=== PATIENT | female | born 1965 | race Two or more races ===

== ENCOUNTER → 2024-05-21 | Outpatient (CLI) | payer BC, SELFPAY ==
--- NOTE | 2024-05-21 16:30 | XR_ITS ---
Examination: Knee bilateral, 6 views Technique: Knee AP, lateral, oblique each knee total 6 views Date and time of exam: May 13, 2024 1435 hrs. Indications: Bilateral knee pain several years Findings: Moderate osteopenia Moderate narrowing medial joint space right knee Moderate osteoarthritis right patellofemoral joint no fracture Advanced narrowing medial joint space left knee Moderate osteoarthritis patellofemoral joint No fracture Impression: Moderate narrowing medial joint space right knee, moderate osteoarthritis right patellofemoral joint Advanced narrowing medial joint space left knee, moderate osteoarthritis patellofemoral joint
--- NOTE | 2024-05-21 16:30 | XR_ITS ---
Examination: PA lateral chest 2 views Technique: Upright PA lateral chest 2 views Exam date and time: May 13, 2024 1641 hrs. Comparison 12/16/2023 Indications: Coughing beginning 3 weeks ago Findings: Normal heart size Lungs are clear. Osseous structures intact Impression: No active disease
[2024-05-21 17:33] LABS: Basophils % (Auto) 1 % (0-2.5); Eosinophils # (Auto) 0.6 Thou/mm3 (0.0-0.5); Eosinophils % (Auto) 8 % (0-10); Hemoglobin 13.6 g/dL (12.0-16.0); Immature Granulocytes % (Auto) 1 % (0-0); Immature Granulocytes Auto 0.06 Thou/mm3 (0.00-0.00); Lymphocytes # (Auto) 2.7 Thou/mm3 (1.0-4.8); Lymphocytes % (Auto) 35 % (10-50); Mean Corpuscular Hemoglobin 29.8 pg (25.0-35.0); Mean Corpuscular Volume 88 fL (80-100); Monocytes # (Auto) 0.5 Thou/mm3 (0.0-0.8); Monocytes % (Auto) 6 % (0-12); Neutrophils # (Auto) 3.9 Thou/mm3 (1.8-7.7); Neutrophils % (Auto) 50 % (37-80); Nucleated Red Blood Cell % 0 /100 WBC (0); Platelet Count 282 Thou/mm3 (140-440); RDW Standard Deviation 43.5 fL (36.4-46.3); Red Blood Count 4.56 Miln/mm3 (4.00-5.20); White Blood Count 7.7 Thou/mm3 (3.6-11.0)
[2024-05-22 15:06] LABS: Cocci Serology, IgM Negative (Negative)
[2024-05-27 13:08] LABS: Cocci Serology, IgG Negative (Negative)
== END | disposition home or self-care (01) ==
LOC: CDIM 16:24 → COPL 16:55
PROVIDERS: Referring Provider Registered Nurse; Visit Provider Registered Nurse
DX: M17.0 Bilateral primary osteoarthritis of knee (principal); R05.2 Subacute cough; R50.9 Fever, unspecified
CPT/HCPCS: 36415; 71046; 73562; 85025; 86331; 86635

== ENCOUNTER → 2024-06-29 | Outpatient (CLI) | payer BC, SELFPAY ==
--- NOTE | 2024-06-29 16:41 | XR_ITS ---
Examination: Bilateral knees 2 views Right lateral knee left lateral knee 2 views Technique: Bilateral AP knees standing single view, bilateral PA knees standing single view flexion Standing right lateral knee left lateral knee 2 views Exam date and time: June 29, 2024 1658 hrs. Indications: Bilateral knee pain beginning 2016. Findings: Moderate osteopenia Bilateral advanced medial joint spaces Bilateral moderate to advanced osteoarthritis patellofemoral joints No fractures Impression: Bilateral advanced narrowing medial joint spaces Bilateral moderate to advanced osteoarthritis patellofemoral joints
--- NOTE | 2024-06-29 16:41 | XR_ITS ---
Examination: Foot bilateral, 6 views Technique: AP, oblique, lateral views each foot total 6 views Date and time of exam: June 29, 2024 1658 hrs. Indications: Bilateral foot pain beginning 6 months ago. Findings: Old fracture deformity right fifth metacarpal 3 mm right plantar bony calcaneal spur Mild bilateral narrowing first metatarsophalangeal joints Mild bilateral narrowing first tarsometatarsal joints Mild left bunion deformity No fracture involving either foot Impression: Bilateral osteoarthritis as above
== END | disposition home or self-care (01) ==
PROVIDERS: PCP Registered Nurse; Referring Provider Registered Nurse; Visit Provider Registered Nurse
DX: M19.072 Primary osteoarthritis, left ankle and foot (principal); M19.071 Primary osteoarthritis, right ankle and foot; M17.0 Bilateral primary osteoarthritis of knee; M25.862 Other specified joint disorders, left knee; M25.861 Other specified joint disorders, right knee
CPT/HCPCS: 73562; 73630

== ENCOUNTER 2024-08-05 14:40 | Outpatient (AMB) | payer BC, SELFPAY ==
[2024-08-05 15:07] VITALS: BP 120/70; PULSE 92; RESP 17; TEMP 36.8; O2SAT 96; BMI 52.7
--- NOTE | 2024-08-05 15:07 | PD.ORTHCLVIS ---
Vital signs 08/05/24 15:07 Height 1.57 m Height Method Stated Weight 130.89 kg Weight Measurement Method Standing Scale BMI 52.7 BP 120/70 Blood Pressure Source Automatic Cuff Blood Pressure Location Right Upper Arm Position Sitting Respiration 17 Pulse 92 Pulse Source Monitor Temp 98.3 F Temp Source Temporal Artery Scan Pulse Oximetry (%) 96 Med/Allergies Allergies & Medications Allergies codeine Allergy (Unknown, Verified 08/05/24 15:11) HIVES acetaminophen (From [place]) Allergy (Verified 08/05/24 15:11) POSSIBLE WELT hydrocodone (From [place]) Allergy (Verified 08/05/24 15:11) POSSIBLE WELT topiramate (From Topamax) Allergy (Verified 08/05/24 15:11) HAIR LOSS Pistachio Allergy (Mild, Uncoded 08/05/24 15:11) THROAT CLOSES Medication Reconciliation duloxetine 60 mg capsule,delayed release (Cymbalta) 60 mg PO QDAY 08/05/24 [History Confirmed 08/05/24] esomeprazole magnesium 40 mg capsule,delayed release (Nexium) 40 mg PO QDAY 08/05/24 [History Confirmed 08/05/24] lisdexamfetamine 40 mg capsule (Vyvanse) 40 mg PO QDAY 08/05/24 [History Confirmed 08/05/24] lorazepam 1 mg tablet (Ativan) 1 mg PO QDAY PRN 08/05/24 [History Confirmed 08/05/24] Exam Exam Patient is in no acute distress and is cooperative with the examination today. Breathing is nonlabored. In no respiratory distress. Bilateral extremities were evaluated and demonstrates sensation intact to light touch. Palpable pedal pulses are present. No significant edema is present. Bilateral hips were examined. The patient has no pain with log roll of the hips. Internal rotation to 30 degrees and external rotation to 30 degrees is painless. Negative FADIR. The left knee was examined. The left knee is in varus alignment. Range of motion from 0-115 degrees. Knee is stable to varus and valgus as well as AP translation with <5mm. Patient has a negative Mc[place]rays. There is no pain with patellofemoral compression and no crepitus noted. The knee is tender to palpation medially. The right knee was also examined. The right knee is in varus alignment. Range of motion from 0-120 degrees. Knee is stable to varus and valgus as well as AP translation with <5mm. Patient has a negative Mc[place]rays. There is no pain with patellofemoral compression and no crepitus noted. The knee is tender to palpation medially. X-rays demonstrate left greater than right knee arthritis. This has been ongoing for a while Assessment and Plan Problem List (1) Degenerative arthritis of knee, bilateral: Status: Acute Plan: Patient is a pleasant 58-year-old female who is morbidly obese with Left greater than right knee arthritis. We discussed different treatment options. We discussed anti-inflammatories and injections. She has not had any injections. We discussed that she would need to lose weight in order to get surgery as she would be at high risk for complications right now. Her goal weight is 220 given her height Recommend knee cortisone injections as patient would like to proceed with conservative treatment at this time. The risks and benefits of the procedure were reviewed with the patient and patient gave verbal consent to continue with the procedure. Procedure: performed by Dr. Mayorga Using sterile technique the Bilateral knees were thoroughly prepped with alcohol, and approximately 1 cc of Kenalog 40 mg/mL and 4 cc of 1% lidocaine was injected into each knee without resistance into the medial tibial femoral joint space. The patient tolerated the procedure. 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 Sales Specialist 40 mL Infiltration 40 mL [id number] 11/21/27 49809-379-67 [employer] triamcinolone acetonide 40 mg/mL suspension for injection Performing Provider: Lobito Mayorga MD Performing Location: [facility] Administered by: Lobito Mayorga MD on 08/05/24 15:32 Dose Route Admin Location Dispensed Lot Number Expiration Date [facility] Sales Specialist 80 mg intra-articular 2 mL [id number] 03/22/26 1975-6352-56 TEVA PARENTERAL MA Intake Visit Data Collection New Patient or Established: Established Patient (seen at [facility] within 3 years) Reason for Visit:: BILAT KNEE PAIN Seen by Clinical Staff ONLY (RN/MA): No Civil Engineering Specialist Required: No PCP or OBGYN visit in last 3 months: Yes Hx Now: No Do You Feel Safe at Home: Yes Authorities Contacted: N/A Questionairres Past Medical History Past Medical History Have you ever been diagnosed with any of the following: Respiratory Problems Smoking: No Smoking Cessation Counseling: No Smoking Exposure: No Tobacco Use: No Subjective Visit Visit for: new patient and knee (BILAT KNEE ) Immunization / Flu Flu Vaccine in the Last 12 Months: No Flu Vaccine Exclusion Criteria: Refused by Patient History of Present Illness Chief complaint: bl knee pain Ros is a pleasant 58-year-old female with a left greater than right knee pain. This been ongoing for a while. She had a prior arthroscopic surgery on the left knee. She has tried anti-inflammatories but has not had any injections. She has been trying to lose weight. She was previously on Ozempic but had side effects and was allergic to it Personal History Red flag PMH: none Pain Pain level (0-10): 10 Pain duration: 2 YEARS Pain location: anterior Pain quality: sharp and burning Pain timing: night Associated signs & symptoms: numbness Ambulatory data Ambulatory device: none Walking distance (minutes): 1 Treatments Number of previous injections: 0 Number of Physical Therapy sessions: 4 Improvement with PT: No Improvement with NSAIDS: n/a Review of Systems Review of Systems: All systems negative unless otherwise noted in HPI.
== END 2024-08-05 15:28 | disposition home or self-care (01) ==
LOC: HODSRG 14:40
PROVIDERS: PCP Registered Nurse; Referring Provider Registered Nurse; Supervising Provider Orthopaedic Surgery Adult Reconstructive Orthopaedic Surgery; Visit Provider Orthopaedic Surgery Adult Reconstructive Orthopaedic Surgery
DX: M17.0 Bilateral primary osteoarthritis of knee (principal); E66.01 Morbid (severe) obesity due to excess calories; Z68.43 Body mass index [BMI] 50.0-59.9, adult
CPT/HCPCS: 20610; 99203; J3301; J3490; G0463

== ENCOUNTER 2024-08-19 16:10 | Emergency (ER) | payer BC, SELFPAY ==
[2024-08-19 16:11] VITALS: BMI 53.0
[2024-08-19 16:30] VITALS: BP 155/100; PULSE 89; RESP 20; TEMP 36.7; O2SAT 95
--- NOTE | 2024-08-19 16:38 | XR_ITS ---
Examination: Pelvic ultrasound, transabdominal, complete Technique: Transabdominal ultrasound of the pelvis performed using grayscale imaging Date and time of exam: August 19, 2024, 1801 hours INDICATIONS: Right-sided pelvic pain onset today FINDINGS: Uterus 9.2 cm endometrial stripe 1.0 cm No urinary mass Ovary is obscured by incomplete bladder distention IMPRESSION: Limited study No uterine mass
--- NOTE | 2024-08-19 16:38 | XR_ITS ---
Examination: CT abdomen and pelvis without contrast. Coronal 3-D reconstructions. Sagittal 2-D reconstructions. Date and time of exam:August 19, 2024 1713 hours Comparison January 06, 2012 INDICATIONS: Abdominal pain beginning 2 days ago CTDI: vol (mGy): 20.5 DLP: (mGycm): 1221 Technique: Axial images of the abdomen have been obtained, 3 mm slice thickness Intravenous contrast material has not been administered. Low dose protocols were performed. One or more of the following dose reduction techniques were used; automated exposure control, adjustment of the mA and/or KV according to patient size, use of iterative reconstruction technique. Findings: 2 mm pulmonary nodule right middle lobe Diffuse fatty infiltration throughout the liver, liver mildly irregular in contour. Contracted gallbladder Spleen not enlarged No pancreatic mass or peripancreatic edema No renal or ureteral calculi Mild bilateral renal parenchymal scar formation Aorta normal size 10 mm fat-containing umbilical hernia Normal appendix No bowel obstruction Colonic diverticulosis, no diverticulitis Atrophic uterus with endometrial stripe thickened in this postmenopausal female, at least 12 mm Contracted urinary bladder Advanced degenerative disc disease L5-S1 IMPRESSION: 2 mm pulmonary nodule right middle lobe, recommend PA lateral chest follow-up No renal or ureteral calculi Normal appendix Abnormally thickened endometrial stripe, recommend transvaginal pelvic sonography follow-up to confirm thickened endometrial stripe, which can be seen with endometrial hyperplasia, early malignant neoplasm of the endometrium
--- NOTE | 2024-08-19 16:39 | EDRME_ITS ---
Rapid Medical Screening Exam RME Arrival date/time: 08/19/24 16:10 58-year-old female with no known medical history presents to the emergency room with a chief complaint of right sided lower abdominal pain, vaginal bleeding x 2 days I have greeted and performed a focused initial assessment of this patient. A com prehensive ED assessment and evaluation of the patient, analysis of all test results, and completion of the medical decision making process will be conducted by additional ED providers. Chief Complaint: Abdominal Pain Vital signs: Vital Signs Temperature 98.0 F 08/19/24 16:30 Pulse Rate 89 08/19/24 16:30 Respiratory Rate 20 08/19/24 16:30 Blood Pressure 155/100 H 08/19/24 16:30 Pulse Oximetry (%) 95 08/19/24 16:30 Oxygen Delivery Method Room Air 08/19/24 16:30 Vital signs reviewed by provider: Yes
[2024-08-19 17:41] LABS: Basophils % (Auto) 0 % (0-2.5); Eosinophils # (Auto) 0.1 Thou/mm3 (0.0-0.5); Eosinophils % (Auto) 2 % (0-10); Hematocrit 41.9 % (36.0-46.0); Hemoglobin 14.2 g/dL (12.0-16.0); Immature Granulocytes % (Auto) 0 % (0-0); Immature Granulocytes Auto 0.03 Thou/mm3 (0.00-0.00); Lymphocytes # (Auto) 2.2 Thou/mm3 (1.0-4.8); Lymphocytes % (Auto) 27 % (10-50); Mean Corpuscular HGB Conc 33.9 g/dl (31.0-37.0); Mean Corpuscular Hemoglobin 30.5 pg (25.0-35.0); Mean Corpuscular Volume 90 fL (80-100); Monocytes # (Auto) 0.6 Thou/mm3 (0.0-0.8); Monocytes % (Auto) 7 % (0-12); Neutrophils % (Auto) 63 % (37-80); Nucleated Red Blood Cell % 0 /100 WBC (0); Platelet Count 289 Thou/mm3 (140-440); RDW Standard Deviation 43.3 fL (36.4-46.3); Red Blood Count 4.66 Miln/mm3 (4.00-5.20)
[2024-08-19 18:01] LABS: Alanine Aminotransferase 26 U/L (10-49); Albumin, Serum 4.3 gm/dL (3.5-5.0); Albumin/Globulin Ratio 1.7 (1.2-2.2); Alkaline Phosphatase 94 U/L (46-116); Anion Gap 10 (7-16); Aspartate Amino Transferase 20 U/L (0-34); BUN/Creatinine Ratio 18 Ratio (12-20); Bilirubin,Total 0.4 mg/dL (0.3-1.2); Blood Urea Nitrogen 14 mg/dL (9-23); Calcium 9.3 mg/dL (8.3-10.6); Calcium (Corrected) 9.3 mg/dL (8.5-10.1); Carbon Dioxide 23.9 mMol/L (20.0-31.0); Chloride 106 mMol/L (98-107); Creatinine (Component) 0.8 mg/dL (0.6-1.3); Estimated Creatinine Clearance 101.3 mL/min (>60); Globulin 2.5 gm/dL (2.3-3.5); Glucose 108 mg/dL (74-106); Lipase 27 U/L (12-53); Osmolality,Calculated 280 (275-295); Potassium 3.9 mMol/L (3.4-5.1); Sodium 140 mMol/L (136-145); Total Protein 6.8 gm/dL (5.7-8.2); eGFR > 60 See Note
[2024-08-19 18:36] LABS: Bilirubin,Urine Negative (Negative); Blood,Urine 3+ (Negative); Clarity,Urine Turbid (Clear/Hazy); Collection Type, Urine Clean Catch; Color,Urine Yellow (Lt Yel-Yel); Glucose, Urine Negative (Negative); Hyaline Casts,Urine < 1 /hpf (0-1); Ketones,Urine Negative (Negative); Leukocyte Esterase,Urine Negative (Negative); Nitrite,Urine Negative (Negative); PH,Urine 5.5 (5.0-7.0); Protein,Urine 1+ (Neg - Trace); RBC,Urine 1242 /hpf (0-3); Specific Gravity,Urine 1.026 (1.001-1.035); Squamous Epithelial Cell,Urine 7 /hpf (0-5); Urobilinogen,Urine Negative mg/dL (0.0-1.0); WBC,Urine 11 /hpf (0-5)
--- NOTE | 2024-08-19 20:21 | PD.EDABDPN ---
ED Abdominal Pain RME/HPI General Chief Complaint: Abdominal Pain Stated complaint: RIGHT FLANK PAIN SINCE YESTERDAY Time seen by provider: 08/19/24 18:19 Arrival date/time: 08/19/24 16:10 RME / HPI RME / HPI narrative: 58-year-old female with no known medical history presents to the emergency room with a chief complaint of right sided lower abdominal pain, flank pain, since yesterday, vaginal bleeding x since this morning. Severity of symptoms mild. Patient denies any fever denies any vomiting denies any other complaints no medications taken prior to arrival. Currently patient is not having any flank pain only complaint of pelvic discomfort. Related Data Home Medications ?Medication ?Instructions ?Recorded ?Confirmed duloxetine 60 mg capsule,delayed 60 mg PO QDAY 08/05/24 08/05/24 release (Cymbalta) esomeprazole magnesium 40 mg 40 mg PO QDAY 08/05/24 08/05/24 capsule,delayed release (Nexium) lisdexamfetamine 40 mg capsule 40 mg PO QDAY 08/05/24 08/05/24 (Vyvanse) lorazepam 1 mg tablet (Ativan) 1 mg PO QDAY PRN 08/05/24 08/05/24 Previous Rx's ?Medication ?Instructions ?Recorded ibuprofen 800 mg tablet 800 mg PO Q8H PRN pain #30 tabs 08/19/24 Allergies Allergy/AdvReac Type Severity Reaction Status Date / Time codeine Allergy Severe HIVES Verified 08/19/24 16:14 pistachio nut Allergy Severe Swelling Verified 08/19/24 16:14 of Lip/Tongue/Throat topiramate (From Topamax) Allergy Severe HAIR LOSS Verified 08/19/24 16:14 Review of Systems Review of Systems Narrative Review of Systems: Review of system reviewed and within normal limits except mentioned in HPI ED Exam Narrative Physical exam: VITAL SIGNS: Reviewed. GENERAL APPEARANCE: Alert and interactive, follows commands, no acute distress, HEAD AND FACE: Non-traumatic. ENT: PERRL, pink conjunctivitis, eyelid no trauma, Mucous membrane moist. NECK: Supple, nontender, no nuchal rigidity. CHEST: No tenderness, no crepitus, no paradoxical movement, no retractions. LUNGS: Clear, well ventilated, symmetric, no rales, no wheezing, no ronchi, no stridor, good breath sounds bilaterally. HEART: Regular rate, regular rhythm, no murmur, no gallops. ABDOMEN: Soft, positive bowel sounds, nondistended, no guarding, pelvic tenderness , no rebound, no masses, RECTAL: Deferred. GENITAL: Deferred. NEUROLOGICAL: Gross motor function intact sensory function intact, Appropriate for age. MUSCULOSKELETAL: low back nontender, full range of motion. EXTREMITIES: Nontender, full range of motion. SKIN: Color pink, dry, no rash, no lacerations, no abrasions, no contusions. LYMPHATICS: Deferred. Course Quality Measures none Orders Category Date Time Status CT abdomen pelvis wo con Stat Exams 08/19/24 16:38 Completed US pelvic complete Stat Exams 08/19/24 16:38 Completed CBC Stat Lab 08/19/24 17:20 Completed CMP [Comprehensive Metabolic Panel] Stat Lab 08/19/24 17:20 Completed Lipase Stat Lab 08/19/24 17:20 Completed UA [Urinalysis] Stat Lab 08/19/24 16:38 Completed Urine Culture Stat Lab 08/19/24 18:15 Received HYDROcodone*/APAP 5/325 [[place] 5/325] Med 08/19/24 20:20 Once 1 tab PO X1 ONE Vital Signs Vital signs: Vital Signs Temperature 98.0 F 08/19/24 16:30 Pulse Rate 89 08/19/24 16:30 Respiratory Rate 20 08/19/24 16:30 Blood Pressure 155/100 H 08/19/24 16:30 Pulse Oximetry (%) 95 08/19/24 16:30 Oxygen Delivery Method Room Air 08/19/24 16:30 Abdominal Pain MDM MDM Narrative MDM Narrative:: 58-year-old female with no known medical history presents to the emergency room with a chief complaint of right sided lower abdominal pain, flank pain, since yesterday, vaginal bleeding x since this morning. Severity of symptoms mild. Patient denies any fever denies any vomiting denies any other complaints no medications taken prior to arrival. Currently patient is not having any flank pain only complaint of pelvic discomfort. Patient's workup today significant for hematuria otherwise unremarkable no UTI. Ultrasound of the pelvis came back with no uterine mass. CT scan of the abdomen and pelvis showed 2 mm pulmonary nodule right middle lobe, recommend PA lateral chest follow-up No renal or ureteral calculi Normal appendix Abnormally thickened endometrial stripe, recommend transvaginal pelvic sonography follow-up to confirm thickened endometrial stripe, which can be seen with endometrial hyperplasia, early malignant neoplasm of the endometrium Patient was advised to follow-up with [facility] to rule out the cause of the vaginal bleeding. Patient agrees with the plan. Patient was also advised to closely follow-up with PCP regarding incidental finding of pulmonary nodule. Patient data External records reviewed:: None Clinical information provided by:: patient Social determinants that could affect healthcare access:: none Patient has the following chronic illnesses:: None How is presenting disease/condition affected by chronic disease/condition?: no chronic disease Evaluation data The following diagnostics were reviewed and interpreted by me:: lab results and radiology exam(s) Lab and/or radiology exams considered but not ordered:: None Interpretation Summary: See results MDM Medications / Prescriptions Medications or Prescriptions considered but not ordered:: none Medication administrations:: none Consultations Consultation(s) initiated? (list below): No Diagnosis Differential diagnosis abdominal pain: abdominal pain and other (Vaginal bleeding,) Most likely diagnosis given after review of the tests above:: Vaginal bleeding, pelvic pain Admission Indicated Admission indicated?: not indicated Admission Request Was there a request for admission?: No Disposition Plan Disposition Plan: Discharge Discharge Attestation Discharge Attestation: The patient and all family members were given an opportunity to ask questions and understood the discharge instructions. Discharge instructions specifically effects, indications for sooner follow up or return to the emergency department, and the expected course of current diagnosis. Patient condition: Stable Discharge Plan Plan Patient Disposition: HOME (Self Care) Prescriptions/Referrals Prescriptions/Med Rec: New ibuprofen 800 mg tablet 800 mg PO Q8H PRN (Reason: pain) Qty: 30 0RF No Action duloxetine [Cymbalta] 60 mg capsule,delayed release(DR/EC) 60 mg PO QDAY lisdexamfetamine [Vyvanse] 40 mg capsule 40 mg PO QDAY lorazepam [Ativan] 1 mg tablet 1 mg PO QDAY PRN esomeprazole magnesium [Nexium] 40 mg capsule,delayed release(DR/EC) 40 mg PO QDAY Referrals: Nikia Ornelas MD [Primary Care Provider] - In 1 week Problem List Clinical Impression: Pelvic pain, Postmenopausal vaginal bleeding Patient/Caregiver Discharge Instructions Discharge Activity: activity as tolerated Education Materials: ED Pelvic Pain, Unknown Cause Additional Instructions: Thank you for the opportunity for serving you today. You are stable for discharged . You are advised to: Follow-up with your PCP in 1 to 2 days Return to ED for worsening of symptoms Increase oral fluids Take medication as prescribed As your PCP to refer to [facility] for further evaluation regarding your postmenopausal vaginal bleeding Print Language: Malay Stand Alone Forms: Callie Award Info., Patient Portal Info Letter PA/PAOLA Supervising Physician PA/PAOLA Supervising Physician: MD Tatianna
[2024-08-19] MEDS: HYDROcodone/APAP 5/325 TABLET 1 TAB PO (20:30)
[2024-08-19 20:42] VITALS: BP 145/87; PULSE 86; RESP 18; TEMP 36.8; O2SAT 99
[2024-08-19 20:45] VITALS: RESP 16
== END 2024-08-19 20:47 | disposition home or self-care (01) ==
PROVIDERS: Nurse Practitioner Family; Emergency Provider Emergency Medicine; PCP Internal Medicine
DX: R10.2 Pelvic and perineal pain (principal); N95.0 Postmenopausal bleeding
CPT/HCPCS: 36415; 74176; 76856; 80053; 81001; 83690; 85025; 87086; 99284; A9270

== ENCOUNTER 2024-11-09 14:13 | Outpatient (AMB) | payer BC, SELFPAY ==
--- NOTE | 2024-11-09 14:40 | ORTHONT_ITS ---
Vital signs 11/09/24 14:48 Height 1.57 m Height Method Measured Weight 128.622 kg Weight Measurement Method Standing Scale BMI 52.2 BP 153/85 H Blood Pressure Source Automatic Cuff Blood Pressure Location Left Upper Arm Position Sitting Respiration 18 Pulse 103 H Pulse Source Monitor Temp 97.4 F Temp Source Temporal Artery Scan Pulse Oximetry (%) 95 Oxygen Delivery Method Room Air Med/Allergies Allergies & Medications Allergies codeine Allergy (Severe, Verified 11/09/24 14:49) HIVES pistachio nut Allergy (Severe, Verified 11/09/24 14:49) Swelling of Lip/Tongue/Throat topiramate (From Topamax) Allergy (Severe, Verified 11/09/24 14:49) HAIR LOSS Medication Reconciliation duloxetine 60 mg capsule,delayed release (Cymbalta) 60 mg PO QDAY 08/05/24 [History Confirmed 11/09/24] esomeprazole magnesium 40 mg capsule,delayed release (Nexium) 40 mg PO QDAY 08/05/24 [History Confirmed 11/09/24] lisdexamfetamine 40 mg capsule (Vyvanse) 40 mg PO QDAY 08/05/24 [History Confirmed 11/09/24] lorazepam 1 mg tablet (Ativan) 1 mg PO QDAY PRN 08/05/24 [History Confirmed 11/09/24] ibuprofen 800 mg tablet 800 mg PO Q8H PRN pain #30 tabs 08/19/24 [Rx Confirmed 11/09/24] Assessment and Plan Problem List (1) Degenerative arthritis of knee, bilateral: Status: Acute Plan: Patient is a pleasant 58-year-old female who is morbidly obese with Left greater than right knee arthritis. We discussed different treatment options. We discussed anti-inflammatories and injections. She has not had any injections. We discussed that she would need to lose weight in order to get surgery as she would be at high risk for complications right now. Her goal weight is 220 given her height Recommend knee cortisone injection as patient would like to proceed with conservative treatment at this time. The risks and benefits of the procedure were reviewed with the patient and patient gave verbal consent to continue with the procedure. Procedure: performed by Dr. Mayorga Using sterile technique the left knee was thoroughly prepped with alcohol, and approximately 1 cc of Depo-Medrol 80mg/mL and 4 cc of 0.2% ropivacaine was injected without resistance into the medial tibial femoral joint space. The patient tolerated the procedure. Recommend knee cortisone injection as patient would like to proceed with conservative treatment at this time. The risks and benefits of the procedure were reviewed with the patient and patient gave verbal consent to continue with the procedure. Procedure: performed by Dr. Mayorga Using sterile technique the Right knee was thoroughly prepped with alcohol, and approximately 1 cc of Depo-Medrol 80mg/mL and 4 cc of 0.2% ropivacaine was injected without resistance into the medial tibial femoral joint space. The patient tolerated the procedure. Office Procedures GNS Level of Care Nursing/Assessment Patient Status: Established Patient Nursing Assessment/Reassesment: Medication Reconciliation, Orthostatic Vitals, Update PMH in EMR and Vital Signs Coordination of Care: Complex Care and Chronic Disease 1-5, Education Complex Pt/Fam, Consent,records obtained, informed consent, Results/Orders obtained and Staff clarify orders Established Patient Charge Established Patient Point Assignment: 105 Established Patient Point Charge: EP Level 3 (80-115) Surgical Proc/IM SQ injection Major Surgical Procedure: Yes (BILATERAL KNEE INJECTION) Medication Given Medication Given Medication Given: Yes Documented Dose Given: 1 Route: Infiitration Medication Given Medication Given Medication Given: Yes Documented Dose Given: 1 Route: Infiitration Medication Given Medication Given Medication Given: Yes Documented Dose Given: 4 Route: Infiitration Medication Given Medication Given Medication Given: Yes Documented Dose Given: 4 Route: Infiitration Office Meds methylprednisolone acetate 80 mg/mL suspension for injection Performing Provider: Lobito Mayorga MD Performing Location: [facility] Administered by: Lobito Mayorga MD on 11/09/24 15:13 Dose Route Admin Location Dispensed Lot Number Expiration Date [facility] Licensed Weigher 80 mg intra-articular 1 mL [id number] 08/20/26 [address]-8 [employer] methylprednisolone acetate 80 mg/mL suspension for injection Performing Provider: Lobito Mayorga MD Performing Location: [facility] Administered by: Lobito Mayorga MD on 11/09/24 15:13 Dose Route Admin Location Dispensed Lot Number Expiration Date [facility] Licensed Weigher 80 mg intra-articular 1 mL [id number] 08/20/26 [address]-1 [employer] ropivacaine (PF) 2 mg/mL (0.2 %) injection solution Performing Provider: Lobito Mayorga MD Performing Location: [facility] Administered by: Lobito Mayorga MD on 11/09/24 15:14 Dose Route Admin Location Dispensed Lot Number Expiration Date [place] Licensed Weigher 20 mL Infiltration 20 mL [id number] 02/20/26 71294-645-78 [employer] [facility] ropivacaine (PF) 2 mg/mL (0.2 %) injection solution Performing Provider: Lobito Mayorga MD Performing Location: [facility] Administered by: Lobito Mayorga MD on 11/09/24 15:14 Dose Route Admin Location Dispensed Lot Number Expiration Date [facility] Licensed Weigher 20 mL Infiltration 20 mL [id number] 02/20/26 93202-963-61 [employer] [facility] Intake Visit Data Collection New Patient or Established: Established Patient (seen at [facility] within 3 years) Reason for Visit:: BILAT KNEE PAIN Seen by Clinical Staff ONLY (RN/MA): No Salesforce Administrator Required: No PCP or OBGYN visit in last 3 months: Yes Hx Now: No Do You Feel Safe at Home: Yes Authorities Contacted: N/A Questionairres Past Medical History Past Medical History Have you ever been diagnosed with any of the following: Respiratory Problems Smoking: No Smoking Cessation Counseling: No Smoking Exposure: No Tobacco Use: No Subjective Visit Visit for: follow up visit and knee Immunization / Flu Flu Vaccine in the Last 12 Months: No Flu Vaccine Exclusion Criteria: Refused by Patient History of Present Illness Chief complaint: bl knee pain Ros is a pleasant 58-year-old female with a left greater than right knee pain. This been ongoing for a while. She had a prior arthroscopic surgery on the left knee. She has tried anti-inflammatories but has not had any injections. She has been trying to lose weight. She was previously on Ozempic but had side effects and was allergic to it Personal History Red flag PMH: none Pain Pain level (0-10): 10 Pain duration: 2 YEARS Pain location: anterior Pain quality: sharp and burning Pain timing: night Associated signs & symptoms: numbness Ambulatory data Ambulatory device: none Walking distance (minutes): 1 Treatments Number of previous injections: 0 Number of Physical Therapy sessions: 4 Improvement with PT: No Improvement with NSAIDS: n/a Review of Systems Review of Systems: All systems negative unless otherwise noted in HPI.
[2024-11-09 14:48] VITALS: BP 153/85; PULSE 103; RESP 18; TEMP 36.3; O2SAT 95; BMI 52.2
== END 2024-11-09 15:12 | disposition home or self-care (01) ==
PROVIDERS: PCP Registered Nurse; Referring Provider Registered Nurse; Supervising Provider Orthopaedic Surgery Adult Reconstructive Orthopaedic Surgery; Visit Provider Orthopaedic Surgery Adult Reconstructive Orthopaedic Surgery
DX: M17.0 Bilateral primary osteoarthritis of knee (principal); M25.562 Pain in left knee; M25.561 Pain in right knee; E66.01 Morbid (severe) obesity due to excess calories; Z68.43 Body mass index [BMI] 50.0-59.9, adult
CPT/HCPCS: 20610; 99213; J1010; J2795; G0463

== ENCOUNTER → 2025-01-26 | Outpatient (CLI) | payer BC, SELFPAY ==
--- NOTE | 2025-01-26 16:59 | XR_ITS ---
Examination: Knee, right, 3 views Technique: Knee AP, lateral, oblique 3 views Date and time of exam: 01/26/2025 at 5:00 p.m. INDICATION: Right knee pain after fall 3 days ago COMPARISON: Bilateral knee radiographs 06/29/2024 FINDINGS: No acute fracture or traumatic subluxation. Redemonstration of osteoarthrosis including high-grade narrowing at the medial femoral tibial compartment and very mild marginal osteophyte formation at the medial compartment and patellofemoral compartment. A small suprapatellar joint effusion is seen. IMPRESSION: No acute fracture or traumatic subluxation. Small knee joint effusion. Osteoarthrosis reidentified.
[2025-01-26 17:38] LABS: Basophils # (Auto) 0.0 Thou/mm3 (0.0-0.2); Basophils % (Auto) 1 % (0-2.5); Eosinophils # (Auto) 0.1 Thou/mm3 (0.0-0.5); Eosinophils % (Auto) 1 % (0-10); Hematocrit 41.1 % (36.0-46.0); Hemoglobin 13.8 g/dL (12.0-16.0); Immature Granulocytes Auto 0.05 Thou/mm3 (0.00-0.00); Lymphocytes # (Auto) 1.6 Thou/mm3 (1.0-4.8); Lymphocytes % (Auto) 19 % (10-50); Mean Corpuscular HGB Conc 33.6 g/dl (31.0-37.0); Mean Corpuscular Hemoglobin 30.4 pg (25.0-35.0); Mean Corpuscular Volume 91 fL (80-100); Monocytes # (Auto) 0.6 Thou/mm3 (0.0-0.8); Monocytes % (Auto) 7 % (0-12); Neutrophils # (Auto) 6.3 Thou/mm3 (1.8-7.7); Neutrophils % (Auto) 73 % (37-80); Nucleated Red Blood Cell # 0.00 Thou/mm3 (0.00-0.00); Nucleated Red Blood Cell % 0 /100 WBC (0); Platelet Count 304 Thou/mm3 (140-440); RDW Standard Deviation 45.2 fL (36.4-46.3); Red Blood Count 4.54 Miln/mm3 (4.00-5.20); White Blood Count 8.6 Thou/mm3 (3.6-11.0)
[2025-01-26 17:52] LABS: Alanine Aminotransferase 32 U/L (10-49); Albumin, Serum 4.6 gm/dL (3.5-5.0); Albumin/Globulin Ratio 1.7 (1.2-2.2); Alkaline Phosphatase 105 U/L (46-116); Anion Gap 7 (7-16); Aspartate Amino Transferase 22 U/L (0-34); BUN/Creatinine Ratio 13 Ratio (12-20); Bilirubin,Total 0.4 mg/dL (0.3-1.2); Blood Urea Nitrogen 10 mg/dL (9-23); Calcium 9.5 mg/dL (8.3-10.6); Calcium (Corrected) 9.5 mg/dL (8.5-10.1); Carbon Dioxide 29.9 mMol/L (20.0-31.0); Chloride 105 mMol/L (98-107); Creatinine (Component) 0.8 mg/dL (0.6-1.3); Globulin 2.7 gm/dL (2.3-3.5); Glucose 129 mg/dL (74-106); Osmolality,Calculated 284 (275-295); Potassium 4.8 mMol/L (3.4-5.1); Sodium 142 mMol/L (136-145); Total Protein 7.3 gm/dL (5.7-8.2); eGFR > 60 See Note
[2025-01-27 12:47] LABS: Cocci Serology, IgM Negative (Negative)
[2025-01-28 12:57] LABS: Cocci Serology, IgG Negative (Negative)
[2025-02-01 17:48] LABS: West Nile Virus Ab. IgG, Serum <1.30
[2025-02-02 07:40] LABS: West Nile Virus Ab. IgM, Serum <0.90
== END | disposition home or self-care (01) ==
LOC: CDIM 16:54 → COPL 17:08
PROVIDERS: PCP Family Medicine; Referring Provider Registered Nurse; Visit Provider Registered Nurse
DX: M25.461 Effusion, right knee (principal); M17.11 Unilateral primary osteoarthritis, right knee; M79.10 Myalgia, unspecified site
CPT/HCPCS: 36415; 73560; 80053; 85025; 86331; 86635; 86788; 86789

== ENCOUNTER 2025-01-27 14:49 | Outpatient (AMB) | payer BC, SELFPAY ==
[2025-01-27 15:13] VITALS: BP 143/79; PULSE 91; RESP 18; TEMP 36.6; O2SAT 94; BMI 52.4
--- NOTE | 2025-01-27 15:13 | ORTHONT_ITS ---
Vital signs 01/27/25 15:13 Height 1.57 m Height Method Stated Weight 129.387 kg Weight Measurement Method Standing Scale BMI 52.4 BP 143/79 H Blood Pressure Source Automatic Cuff Blood Pressure Location Left Upper Arm Position Sitting Respiration 18 Pulse 91 Pulse Source Monitor Temp 97.8 F Temp Source Temporal Artery Scan Pulse Oximetry (%) 94 L Oxygen Delivery Method Room Air Med/Allergies Allergies & Medications Allergies codeine Allergy (Severe, Verified 01/27/25 15:14) HIVES pistachio nut Allergy (Severe, Verified 01/27/25 15:14) Swelling of Lip/Tongue/Throat topiramate (From Topamax) Allergy (Severe, Verified 01/27/25 15:14) HAIR LOSS Medication Reconciliation duloxetine 60 mg capsule,delayed release (Cymbalta) 60 mg PO QDAY 08/05/24 [History Confirmed 01/27/25] esomeprazole magnesium 40 mg capsule,delayed release (Nexium) 40 mg PO QDAY 08/05/24 [History Confirmed 01/27/25] lisdexamfetamine 40 mg capsule (Vyvanse) 40 mg PO QDAY 08/05/24 [History Confirmed 01/27/25] lorazepam 1 mg tablet (Ativan) 1 mg PO QDAY PRN 08/05/24 [History Confirmed 01/27/25] ibuprofen 800 mg tablet 800 mg PO Q8H PRN pain #30 tabs 08/19/24 [Rx Confirmed 01/27/25] Exam Exam Patient is in no acute distress and is cooperative with the examination today. Breathing is nonlabored. In no respiratory distress. Bilateral extremities were evaluated and demonstrates sensation intact to light touch. Palpable pedal pulses are present. No significant edema is present. Bilateral hips were examined. The patient has no pain with log roll of the hips. Internal rotation to 30 degrees and external rotation to 30 degrees is painless. Negative FADIR. The left knee was examined. The left knee is in varus alignment. Range of motion from 0-115 degrees. Knee is stable to varus and valgus as well as AP translation with <5mm. Patient has a negative McMurrays. There is no pain with patellofemoral compression and no crepitus noted. The knee is tender to palpation medially. The right knee was also examined. The right knee is in varus alignment. Range of motion from 0-120 degrees. Knee is stable to varus and valgus as well as AP translation with <5mm. Patient has a negative McMurrays. There is no pain with patellofemoral compression and no crepitus noted. The knee is tender to palpation medially. X-rays demonstrate left greater than right knee arthritis. This has been ongoing for a while Assessment and Plan Problem List (1) Degenerative arthritis of knee, bilateral: Status: Acute Plan: Patient is a pleasant 58-year-old female who is morbidly obese with Left greater than right knee arthritis. We discussed different treatment options. We discussed anti-inflammatories and injections. She has not had any injections. We discussed that she would need to lose weight in order to get surgery as she would be at high risk for complications right now. Her goal weight is 220 given her height Recommend knee cortisone injection as patient would like to proceed with conservative treatment at this time. The risks and benefits of the procedure were reviewed with the patient and patient gave verbal consent to continue with the procedure. Procedure: performed by Dr. Mayorga Using sterile technique the left knee was thoroughly prepped with alcohol, and approximately 1 cc of Depo-Medrol 80mg/mL and 4 cc of 0.2% ropivacaine was injected without resistance into the medial tibial femoral joint space. The patient tolerated the procedure. Recommend knee cortisone injection as patient would like to proceed with conservative treatment at this time. The risks and benefits of the procedure were reviewed with the patient and patient gave verbal consent to continue with the procedure. Procedure: performed by Dr. Mayorga Using sterile technique the Right knee was thoroughly prepped with alcohol, and approximately 1 cc of Depo-Medrol 80mg/mL and 4 cc of 0.2% ropivacaine was injected without resistance into the medial tibial femoral joint space. The patient tolerated the procedure. Office Procedures GNS Level of Care Nursing/Assessment Patient Status: Established Patient Nursing Assessment/Reassesment: Medication Reconciliation, Update PMH in EMR and Vital Signs Coordination of Care: Complex Care and Chronic Disease 1-5, Education Complex Pt/Fam, Consent,records obtained, informed consent, Results/Orders obtained and Staff clarify orders Established Patient Charge Established Patient Point Assignment: 95 Established Patient Point Charge: EP Level 3 (80-115) Surgical Proc/IM SQ injection Minor Surgical Procedure: Yes (BILATERAL KNEE INJECTION) Medication Given Medication Given Medication Given: Yes Documented Dose Given: 2 Route: Infiitration Medication Given Medication Given Medication Given: Yes Documented Dose Given: 8 Route: Infiitration Office Meds methylprednisolone acetate 80 mg/mL suspension for injection Performing Provider: Lobito Mayorga MD Performing Location: [facility] Administered by: Lobito Mayorga MD on 01/27/25 15:38 Dose Route Admin Location Dispensed Lot Number Expiration Date Pack age [facility] [employer] 160 mg intra-articular KNEE 2 mL [id number] 10/20/26 [address]-7 7 [id number] [employer] ropivacaine (PF) 2 mg/mL (0.2 %) injection solution Performing Provider: Lobito Mayorga MD Performing Location: [facility] Administered by: Lobito Mayorga MD on 01/27/25 15:38 Dose Route Admin Location Dispensed Lot Number Expiration Date Pack age [facility] [employer] 40 mL Infiltration KNEE 40 mL [id number] 04/22/27 64532-890-93 [id number] [facility] Intake Visit Data Collection New Patient or Established: Established Patient (seen at [facility] within 3 years) Reason for Visit:: KNEE PAIN/REQ BL KNEE INJ Seen by Clinical Staff ONLY (RN/MA): No [facility] Attendant Required: No PCP or OBGYN visit in last 3 months: Yes Hx Now: No Do You Feel Safe at Home: Yes Authorities Contacted: N/A Questionairres Past Medical History Past Medical History Have you ever been diagnosed with any of the following: Respiratory Problems Smoking: No Smoking Cessation Counseling: No Smoking Exposure: No Tobacco Use: No Subjective Visit Visit for: follow up visit, knee and injections (BILATERAL KNEE) Immunization / Flu Flu Vaccine in the Last 12 Months: No Flu Vaccine Exclusion Criteria: Refused by Patient History of Present Illness Chief complaint: bl knee pain Ros is a pleasant 58-year-old female with a left greater than right knee pain. This been ongoing for a while. She had a prior arthroscopic surgery on the left knee. She has tried anti-inflammatories but has not had any injections. She has been trying to lose weight. She was previously on Ozempic but had side effects and was allergic to it. She had a recent increase in knee pain. She would like to repeat bilateral knee injections today Personal History Red flag PMH: none Pain Pain level (0-10): 10 Pain duration: 2 YEARS Pain location: anterior Pain quality: sharp and burning Pain timing: night Associated signs & symptoms: numbness Ambulatory data Ambulatory device: none Walking distance (minutes): 1 Treatments Number of previous injections: 0 Number of Physical Therapy sessions: 4 Improvement with PT: No Improvement with NSAIDS: n/a Review of Systems Review of Systems: All systems negative unless otherwise noted in HPI.
== END 2025-01-27 15:41 | disposition home or self-care (01) ==
PROVIDERS: PCP Internal Medicine; Referring Provider Internal Medicine; Supervising Provider Orthopaedic Surgery Adult Reconstructive Orthopaedic Surgery; Visit Provider Orthopaedic Surgery Adult Reconstructive Orthopaedic Surgery
DX: M25.562 Pain in left knee (principal); M25.561 Pain in right knee; M17.0 Bilateral primary osteoarthritis of knee; E66.01 Morbid (severe) obesity due to excess calories; Z68.43 Body mass index [BMI] 50.0-59.9, adult
CPT/HCPCS: 20610; 99213; J1010; J2795; G0463